=== PATIENT | female | born 1970 | race Caucasian/White ===

== ENCOUNTER 2020-03-26 07:52 | Emergency (ER) | payer BC ==
[~2020-03-26] VITALS: Ht 172.7 cm; Wt 85.7 kg
[2020-03-26 08:25] LABS: ABSOLUTE BASOPHILS 0.1 thou/uL (0.0-0.2); ABSOLUTE EOSINOPHILS 0.1 thou/uL (0.0-0.7); ABSOLUTE LYMPHOCYTES 1.3 thou/uL (0.8-5.3); ABSOLUTE MONOCYTES 0.5 thou/uL (0.0-1.2); BASOPHILS 0.9 %; EOSINOPHILS 1.5 %; HEMOGLOBIN 10.9 gm/dL (12.0-15.0); LYMPHOCYTES 16.2 %; MCH 23.7 pg (26.0-34.0); MCHC 33.1 g/dL (28.0-37.0); MCV 71.7 fL (80.0-100.0); MONOCYTES 5.8 %; MPV 7.7 fl. (7.2-11.1); NUCLEATED RBCS 0 /100WBC; PLATELET COUNT* 327 thou/uL (150-400); POLYS 75.6 %; RBC 4.61 mil/uL (4.20-5.00); RDW-CV 17.3 % (10.5-14.5); WBC 7.9 thou/uL (4.0-11.0)
[2020-03-26 08:37] LABS: APTT 25.7 Seconds (25.0-31.3)
[2020-03-26 08:40] LABS: CALCIUM 7.8 mg/dL (8.5-10.1); CREATININE 0.6 mg/dL (0.6-1.3); POTASSIUM 3.5 mmol/L (3.5-5.1)
[2020-03-26 09:04] LABS: ALBUMIN 3.5 g/dL (3.4-5.0); CK-MB MASS 2.4 ng/mL (<0.5-3.6); MAGNESIUM 1.9 mg/dL (1.8-2.4); TOTAL BILIRUBIN 0.3 mg/dL (<0.1-1.0); TOTAL PROTEIN 6.9 g/dL (6.4-8.2)
[2020-03-26 09:22] VITALS: BP 174/94
[2020-03-26 09:23] LABS: ANISOCYTOSIS 1+; MICROCYTES 1+; PLATELET ESTIMATE ADEQUATE
--- NOTE | 2020-03-26 14:36 | EKG ---
[place] [address] ELECTROCARDIOGRAM REPORT Name: RAFAEL RATLIFF Room: [facility]#: [id number] Admission: 03/26/20 Attend Phys: Discharge: 03/26/20 Date of : 70 Date of Service: 03/26/20 0755 Report #: [id number] THIS REPORT FOR: //name// [facility] ED Test Date: 2020-03-26 Test Time: 07:55:59 Pat Name: RAFAEL RATLIFF Department: Room: Gender: F Garment Folder: : 1970 Requested By: Kemal Boone Order Number: [id number] MD: Morro Mcdaniel Measurements Intervals [place] Rate: 61 P: 39 OK: 147 QRS: 25 QRSD: 96 T: 38 QT: 408 QTc: 411 Interpretive Statements Sinus rhythm Probable left ventricular hypertrophy Baseline wander in lead(s) II,III,aVF No previous ECG available for comparison Electronically Signed On 03-26-2020 14:34:51 CDT by Morro Mcdaniel [email or web address] <ELECTRONICALLY SIGNED> By: Morro Mcdaniel MD, [facility] 03/26/20 1434 0755 [id number] Morro Mcdaniel MD, [facility] /EPI
== END 2020-03-26 09:22 | disposition home or self-care (01) ==
LOC: M.ERS 07:52
PROVIDERS: Family Medicine
DX: I10 Essential (primary) hypertension (principal); R07.89 Other chest pain; Z88.0 Allergy status to penicillin